=== PATIENT | female | born 1950 | race Caucasian/White ===

== ENCOUNTER → 2020-05-03 11:34 | Outpatient (BNVA) | payer MEDICARE, SELFPAY | PROVIDERS: PCP Family Medicine; Visit Provider Obstetrics & Gynecology | DX: Z13.89 Encounter for screening for other disorder (principal) | CPT/HCPCS: Q3014 ==

== ENCOUNTER → 2020-05-08 10:31 | Outpatient (BNVA) | payer MEDICARE, SELFPAY | PROVIDERS: PCP Family Medicine; Visit Provider Obstetrics & Gynecology | DX: N90.89 Other specified noninflammatory disorders of vulva and perineum (principal) | CPT/HCPCS: 99212 ==

== ENCOUNTER 2020-12-07 07:10 | Outpatient (REF) | payer MEDICARE, SELFPAY ==
[2020-12-07 08:01] LABS: Alanine Aminotransferase 15 U/L (0-31); Anion Gap 10 (12-20); Blood Urea Nitrogen 15 mg/dL (9-16); Carbon Dioxide 31 mmol/L (22-29); Chloride 104 mmol/L (96-108); Cholesterol 298 mg/dL; Estimated Glomerular Filt Rate > 60; HDL Cholesterol 44 mg/dL; LDL Cholesterol Calculated 215 mg/dl; Potassium 4.4 mmol/L (3.3-5.1); Sodium 141 mmol/L (135-145); Triglycerides 199 mg/dL
== END 2020-12-07 07:11 | disposition home or self-care (01) ==
LOC: HO.LAB 07:10
PROVIDERS: PCP Family Medicine; Visit Provider Family Medicine
DX: I10 Essential (primary) hypertension (principal); E78.00 Pure hypercholesterolemia, unspecified; Z86.79 Personal history of other diseases of the circulatory system
CPT/HCPCS: 36415; 80051; 80061; 82565; 84460; 84520

== ENCOUNTER 2024-11-09 10:56 | Outpatient (AMB) | payer MEDICARE, SELFPAY ==
--- NOTE | 2024-11-09 11:07 | A.OFFPC_ITS ---
Vital Signs 11/09/24 11:17 Height 5 ft 2 in Weight 68.039 kg BMI 27.4 BP 140/84 H Respiration 16 Pulse 71 Pulse Source Pulse Oximeter Temp 98.0 F Temp Source Temporal Artery Scan Pulse Oximetry (%) 99 Oxygen Delivery Method Room Air Intake Visit Reasons: 4 MO F/UP - BHUPINDER PT Recycling Specialist Required: No Accompanied by: Self / Same As Patient Allergies Penicillins Allergy (Unknown, Verified 11/09/24 11:07) Unknown Sulfa (Sulfonamide Antibiotics) Adverse Reaction (Unknown, Verified 11/09/24 11:07) Unknown almonds Allergy (Unknown, Uncoded 11/09/24 11:07) Unknown Medication List - Last Reconciled 11/09/24 by ALEX Vaughn azelastine 1 spray intranasal BID lisinopril 10 mg PO DAILY 30 days loratadine (Claritin) 10 mg PO DAILY multivitamin 1 tab PO DAILY Tobacco use date assessed: 11/09/24 Fall risk assessment: No Falls in past year Last assessed Fall Risk: 11/09/24 Dental Screening Dental Screen Date: 11/09/24 Did you have a dental visit in the last 12 months?: Yes Did you have a dental problem in the last 6 months where you did not have access to dental care?: No Was dental information given to patient?: No HPI HPI Comments History of Present Illness Details 74-year-old female with history of hyper tension, osteoarthritis, fibromyalgia, GERD, stress incontinence, hyperlipidemia, BPPV presenting to the office today for management of chronic conditions and to establish care. She is a prior patient of Dr. Coreas, last seen June/2024. HTN- blood pressure in the office today 140/84, 140/68 on recheck. Has a known history of white coat hypertension. She brings records of her blood pressures at home which are well-controlled with SBP typically in the 120s and DBP in the 60s. Compliant with lisinopril 10 mg daily. Fibromyalgia- taking ibuprofen, not always helpful. Reports diffuse aching. She also experiences sciatica and neuropathy in the feet bilaterally. No depression/anxiety. History of L breast surgery 24 years age- calcium deposit lumpectomy at [facility]. Still going for mammograms at [facility] and has not had any further issues Hyperlipidemia-last LDL 215. Reports she has tried several different statins with arthralgias and myalgias. Reports this was greater than 10 years ago and has not trialed any other medication since Concerns: Seasonal allergies- nasal congestion, decreased/muffled hearing. No sneezing, coughing. Room purifier. No humidifier. 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 No sore throat, nasal congestion, rhinorrhea, sinus pain, ear pain Cardiovascular: No chest pain, palpitations, or leg edema Respiratory: No shortness of breath, wheezing, cough GI: No abdominal pain, nausea, vomiting, diarrhea, constipation, melena, hematochezia : No dysuria, hematuria, increased urinary frequency, decreased urinary output MSK: see hpi Neuro: No headaches, weakness, paresthesias. see hpi Skin: No rashes or lesions EXAM: Constitutional - Awake and Alert, No apparent distress Eyes - PERRL Cardiovascular - S1S2, RRR, No edema Respiratory - Normal lung expansion, Normal respiratory effort, No respiratory distress, CTA bilaterally Extremities - no calf tenderness bilaterally, no swelling Skin - Warm/Dry Neurological - Alert & oriented x3 Psychological - Appropriate affect PFSH Medical History (Updated 11/09/24 @ 12:00 by ALEX Vaughn) HLD (hyperlipidemia) Seasonal allergies HTN (hypertension) Fibromyalgia Surgical History H/O breast surgery H/O total hysterectomy Family History (Updated 11/09/24 @ 11:59 by ALEX Vaughn) Mother Metastatic cancer Father CAD (coronary artery disease) Social History Housing: House Alcohol intake: current Patient Tobacco Use Status: Former Tobacco user e-Cigarette/Vaping Use: Never Used service: No Current occupational status: retired Cognitive needs: No Hearing needs: Yes (Bilateral) Vision needs: Yes (Rx glasses) Questionnaire PHQ-9 Over the last 2 weeks, how often have you been bothered by any of the following problems? 1. Little interest or pleasure in doing things: not at all 2. Feeling down, depressed, or hopeless: not at all 3. Trouble falling or staying asleep, or sleeping too much: not at all 4. Feeling tired or having little energy: not at all 5. Poor appetite or overeating: not at all 6. Feeling bad about yourself - or that you are a failure or have let yourself or your family down: not at all 7. Trouble concentrating on things, such as reading the newspaper or watching television: not at all 8. Moving or speaking so slowly that other people could have noticed. Or the opposite - being so fidgety or restless that you have been moving around a lot more than usual: not at all 9. Thoughts that you would be better off or of hurting yourself in some way: not at all Total score: 0 Source: Developed by Drs. Brenton Dye, Sydnee Dudley, Jonah Breaux and colleagues, with an educational armando from [employer]. Thrive Questionnaire Date Thrive assessed: 11/09/24 I am a: Patient What is your living situation today?: I have a steady place to live Within the past 12 months, did the food you bought not last and you didn't have the money to get more?: Never true Within the past 12 months, did you worry whether your food would run out before you got money to buy more?: Never true Do you have trouble paying for medicines?: No Do you have trouble getting transportation to medical appointments?: No Do you have trouble paying your heating and electricity bill?: No Do you have trouble taking care of your child, family member or friend?: No Do you have trouble with day-to-day activities such as bathing, preparing meals, shopping, managing finances, etc.?: No Are you currently unemployed and looking for a job?: No Are you interested in more education?: No Please select the resources that you would like help with: None THRIVE Score: 0 AUDIT C Alcohol Use Questionnaire (AUDIT-C) 1. How often do you have a drink containing alcohol?: 2-4 times a month Total Score: 2 JORGE LUIS-7 AMB Questionnaire JORGE LUIS-7 Date JORGE LUIS - 7 assessed: 11/09/24 Feeling nervous, anxious, or on edge: 0 = Not at all Not being able to stop or control worryin = Not at all Worrying too much about different things: 0 = Not at all Trouble relaxin = Not at all Being so restless that it is hard to sit still: 0 = Not at all Becoming easily annoyed or irritable: 0 = Not at all Feeling afraid as if something awful might happen: 0 = Not at all Total JORGE LUIS-7 score (0-4 normal; 5-9 mild; 10-14 moderate; 15-21 severe): 0 Source: Developed by Drs. Brenton Dye, Sydnee Dudley, Jonah Breaux and colleagues, with an educational armando from [employer]. Physical exam (Primary Care) Vital Signs: Last Vital Signs Temp 98.0 F 11/09/24 11:17 Pulse 71 11/09/24 11:17 Resp 16 11/09/24 11:17 BP 140/84 H 11/09/24 11:17 Pulse Ox 99 11/09/24 11:17 Oxygen Delivery Method Room Air 11/09/24 11:17 BMI result Body Mass Index 27.4 Tobacco/Smoking Status: Tobacco use Status Tobacco use date assessed 11/09/24 11/09/24 11:20 Patient Tobacco Use Status Former Tobacco user 11/09/24 11:20 e-Cigarette/Vaping Use Never Used 11/09/24 11:20 PHQ-9: PHQ-9 Score PHQ-9: Total score 0 11/09/24 11:49 Thrive Assessment: Date of Thrive Assessment Date Thrive assessed 11/09/24 11/09/24 11:20 Coding Level of Care Code New Pt Level 4 (46621) Complex EM visit Add On G2211 Diagnoses Fibromyalgia M79.7 HTN (hypertension) I10 Seasonal allergies J30.2 HLD (hyperlipidemia) E78.5 Assessment & Plan Assessment & Plan (1) Fibromyalgia: Code(s): M79.7 - Fibromyalgia Category: Medical Plan: Trial gabapentin 300 mg at bedtime. Counseled on side effects. Discussed that we can increase dose up to 3 times daily or trial SNRI if no improvements. Recommend regular exercise (2) HTN (hypertension): Code(s): I10 - Essential (primary) hypertension Category: Medical Plan: Borderline however blood pressures are well-controlled at home. Continue lisinopril 10 mg daily (3) Seasonal allergies: Code(s): J30.2 - Other seasonal allergic rhinitis Category: Medical Plan: Recommend changing antihistamine to either cetirizine or fexofenadine. She is also prescribed Astelin nasal spray. Avoid triggers as much as possible. Recommend humidifier. Avoid fans and keep windows closed (4) HLD (hyperlipidemia): Code(s): E78.5 - Hyperlipidemia, unspecified Category: Medical Plan: Fasting lipid profile ordered. Previously significantly under control. Continue diet lower in saturated fats and highly processed foods. Pending results, can consider initiating Zetia and or referral to cardiology for consideration of Repatha Plan Follow-up in the office in 6 months, sooner if needed. Labs to be completed Orders: Orders Basic Metabolic Panel Today E78.5 - Hyperlipidemia, unspecified, I10 - Essential (primary) hypertension, M79.7 - Fibromyalgia Liver Panel Today E78.5 - Hyperlipidemia, unspecified, I10 - Essential ( primary) hypertension, M79.7 - Fibromyalgia Complete Blood Count Auto Diff Today E78.5 - Hyperlipidemia, unspecified, I10 - Essential (primary) hypertension, M79.7 - Fibromyalgia Lipid Panel Today E78.5 - Hyperlipidemia, unspecified, I10 - Essential (primary) hypertension, M79.7 - Fibromyalgia TSH reflex Free T4 Today E78.5 - Hyperlipidemia, unspecified, I10 - Essential (primary) hypertension, M79.7 - Fibromyalgia Medications: New gabapentin 300 mg PO BEDTIME 90 caps 1RF azelastine administer into each nostril 1 spray intranasal BID 30 mL 5RF Patient Instructions: Trial zyrtec or tonya.
[2024-11-09 11:17] VITALS: BP 140/84; PULSE 71; RESP 16; TEMP 36.7; O2SAT 99; BMI 27.4
== END 2024-11-09 12:08 | disposition home or self-care (01) ==
LOC: HO.HMCHD 10:56
PROVIDERS: PCP Family Medicine; Visit Provider Physician Assistant
DX: M79.7 Fibromyalgia (principal); I10 Essential (primary) hypertension; J30.2 Other seasonal allergic rhinitis; E78.5 Hyperlipidemia, unspecified

== ENCOUNTER → 2024-11-09 10:56 | Outpatient (BNVA) | payer MEDICARE, SELFPAY | PROVIDERS: PCP Family Medicine; Visit Provider Physician Assistant | DX: M79.7 Fibromyalgia (principal); I10 Essential (primary) hypertension; J30.2 Other seasonal allergic rhinitis; E78.5 Hyperlipidemia, unspecified; Z79.899 Other long term (current) drug therapy; Z13.39 Encounter for screening examination for other mental health and behavioral disorders; Z13.30 Encounter for screening examination for mental health and behavioral disorders, unspecified | CPT/HCPCS: 96127; 99202 ==

== ENCOUNTER 2024-12-15 07:29 | Outpatient (REF) | payer MEDICARE, SELFPAY ==
[2024-12-15 11:14] LABS: MANUAL DIFF FLAG NO
[2024-12-15 11:22] LABS: Hematocrit 40.6 % (37.0-47.0); Hemoglobin 13.2 g/dl (12.0-16.0); Imm Gran Abs Auto 0.01 X10*3/uL (0.00-0.03); Imm Gran Pct Auto 0.1 % (0.0-0.4); Lymphocytes Absolute Auto 2.3 X10*3/uL (1.2-4.9); Mean Corpuscular HGB Conc 32.5 g/dl (31.0-35.0); Mean Corpuscular Hemoglobin 31.4 pg (27.0-33.0); Mean Corpuscular Volume 96.4 fL (80.0-98.0); NRBC Abs Auto 0.000 X10*3/uL (0.0-0.012); NRBC Pct Auto 0.0 /100WBC (0.0-0.2); Platelet Count 298 X10*3/uL (160-400); Red Blood Count 4.21 X10*6/uL (4.20-5.50); White Blood Count 6.7 X10*3/uL (4.8-10.8)
[2024-12-15 12:03] LABS: Alanine Aminotransferase 18 U/L (0-31); Albumin Level 4.4 g/dL (3.5-5.0); Alkaline Phosphatase 51 U/L (39-117); Anion Gap 9 (12-20); Aspartate Amino Transferase 18 U/L (5-31); Blood Urea Nitrogen 18 mg/dL (9-16); Calcium 8.9 mg/dL (8.4-10.2); Carbon Dioxide 30 mmol/L (22-29); Chloride 110 mmol/L (96-108); Cholesterol 285 mg/dL (<200); Estimated Glomerular Filt Rate > 60; HDL Cholesterol 44 mg/dL (>40); Potassium 4.6 mmol/L (3.3-5.1); Sodium 144 mmol/L (135-145); Total Protein 6.5 g/dL (6.5-8.0); Triglycerides 195 mg/dL (<150)
== END 2024-12-15 07:30 | disposition home or self-care (01) ==
LOC: HO.WFDLDS 07:29
PROVIDERS: Visit Provider Physician Assistant
DX: I10 Essential (primary) hypertension (principal); M79.7 Fibromyalgia; E78.5 Hyperlipidemia, unspecified
CPT/HCPCS: 36415; 80048; 80061; 80076; 84443; 85025